=== PATIENT | male | born 1990 | race Caucasian/White ===

== ENCOUNTER 2018-08-03 08:27 | Emergency (ER) | payer OTHER ==
[2018-08-03 08:36] VITALS: BP 126/70
[2018-08-03] MEDS ORDERED: AMOXICILLIN/CLAVULANATE POT 875/125 MG TAB PO ONE (08:58)
--- NOTE | 2018-08-03 09:05 | EDPHY ---
H & P Stated Complaint: dog bite R wrist, L finger (dog utd vac) at wk this am Time Seen by Provider: 08/03/18 08:57 - Personal History Current Tetanus/Diphtheria Vaccine: Unsure Current Tetanus Diphtheria and Acellular Pertussis (TDAP): Unsure - Medical/Surgical History Hx Asthma: No Hx Chronic Respiratory Disease: No Hx Diabetes: No Hx Cardiac Disease: No Hx Renal Disease: No Hx Cirrhosis: No Hx Alcoholism: No Hx HIV/AIDS: No Hx Splenectomy or Spleen Trauma: No Other PMH: denies - Social History Smoking Status: Current every day smoker Constitutional: Initial Vital Signs Temperature (C) 36.5 C 08/03/18 08:34 Heart Rate 60 08/03/18 08:34 Respiratory Rate 18 08/03/18 08:34 Blood Pressure 126/70 H 08/03/18 08:34 O2 Sat (%) 100 08/03/18 08:34 O2 Delivery Mode Room Air Allergies/Adverse Reactions: No Known Allergies Allergy (Unverified 08/03/18 08:34) Home Medications: Medication Instructions Recorded Amoxicillin/Clavulanate Pot 875 mg PO BID #20 tab 08/03/18 [Augmentin 875 MG TAB (RX)] Medical Decision Making ED Course/Re-evaluation: CHIEF COMPLAINT: Dog bites HISTORY OF PRESENT ILLNESS: This patient works at a [employer]. 2 dogs were fighting. He broke up the fight. He has 2 superficial injuries to his right thenar eminence and left index finger. They are not significant punctures. Patient states he has normal function. Tetanus is up-to-date. REVIEW OF SYSTEMS: A comprehensive 10 system review of systems is otherwise negative aside from elements mentioned in the history of present illness and medical decision making. PHYSICAL EXAM: HR, BP, O2 Sat, RR. Temp noted General Appearance: Alert, well hydrated, appropriate, and non-toxic appearing. Head: Atraumatic without scalp tenderness or obvious injury Eyes: Pupils equal, round, reactive to light and accommodation, EOMI, no trauma , no injection. Ears: Clear bilaterally, no perforation, normal landmarks Nose: Atraumatic, no rhinorrhea, clear. Throat: There is no erythema or exudates, no lesions, normal tonsils, mucus membranes moist. Neck: Supple, 2+ carotid upstroke, nontender, no lymphadenopathy. Respiratory: No retractions, no distress, no wheezes, and no accessory muscle use. Lungs are clear to auscultation bilaterally. Cardiovascular: Regular rate and rhythm, no murmurs, rubs, or gallops. Bilateral carotid, radial, dorsalis pedis, and posterior tibial pulses intact. Good capillary refill all extremities. Gastrointestinal: Abdomen is soft, nontender, non-distended, no masses, no rebound, no guarding, no peritoneal signs. Musculoskeletal: Normal active ROM of all extremities, atraumatic. Neurological: Alert, appropriate, and interactive. The patient has normal DTRs and non-focal cranial nerves, motor, sensory, and cerebellar exam. Skin: Superficial dog bites to the extremities mentioned above. Normal function. No rashes, good turgor, no nodules on palpation. Past medical history: None Past surgical history: None Family history: Noncontributory Social history: Single, employed, does not abuse tobacco drugs or alcohol DIFFERENTIAL DIAGNOSIS: Includes but is not limited to: Puncture, laceration , infected dog bite, tendon injury, nail bed injury MEDICAL DECISION MAKING: This patient has no significant injuries. He does not require any repair of the skin. We have cleaned the injuries of applied bacitracin and will start him on Augmentin. He will follow up only if needed he knows to keep the wounds clean. Departure - Departure Disposition: Home, Routine, Self-Care Clinical Impression: Dog bite of arm Qualifiers: Encounter type: initial encounter Laterality: right Qualified Code(s): S41.151A - Open bite of right upper arm, initial encounter; W54.0XXA - Bitten by dog, initial encounter; W54.0XXA - Bitten by dog, initial encounter Condition: Good Instructions: Animal Bite (ED) Additional Instructions: Wash 3 times daily and apply antibiotic ointment. Return if the area turns red or you have red streaks up her arm. Return if you have any function problems with her hands or arms. Referrals: NONE *PRIMARY CARE P,. [Primary Care Provider] - As per Instructions Prescriptions: Amoxicillin/Clavulanate Pot [Augmentin 875 MG TAB (RX)] 875 mg PO BID #20 tab
== END 2018-08-03 09:15 | disposition home or self-care (01) ==
DX: S61.231A Puncture wound without foreign body of left index finger without damage to nail, initial encounter (principal); S61.431A Puncture wound without foreign body of right hand, initial encounter; W54.0XXA Bitten by dog, initial encounter; Y92.89 Other specified places as the place of occurrence of the external cause; Y93.K9 Activity, other involving animal care; Y99.0 Civilian activity done for income or pay